=== PATIENT | female | born 1940 | race Caucasian/White ===

== ENCOUNTER 2018-05-26 14:38 | Emergency (ER) | payer OTHER ==
[2018-05-26 14:52] VITALS: BP 110/45; PULSE 65; TEMP 98.1; BMI 21.3
--- NOTE | 2018-05-26 15:38 | PDOC ---
History of Present Illness - General History Source: Patient Exam Limitations: No Limitations - History of Present Illness Initial Comments: 05/26/18 16:00 The patient is a 77 year old female, from [facility], [place], operated by [facility], with a significant past medical history of osteochondroma, schizoaffective disorder, osteoporosis, spinal stenosis of lumbar spine, depression, anxiety, HLD who presents to the ED s/p unwitnessed fall earlier today. Patient states she was leaning forward to throw something away when she fell backwards around 2pm earlier today. Patient states she lost balance but denies dizziness or lightheadedness. She states it happened so fast that she is unable to recall whether or not she hit her head. Upon arrival to the ED, patient is complaining of chronic pain she has at baseline. Patient has a history of falls and ambulates with walker/wheelchair at baseline. Patient was treated in the ED on 05/15/18 for leg pain and discharged home. Denies loss of consciousness. Denies any other symptoms. Surgical hx: Bilateral hip replacement <Laura Singer - Last Filed: 05/26/18 16:08> <Osei Gibbs - Last Filed: 05/26/18 18:33> - General Chief Complaint: Injury Stated Complaint: FALL, Time Seen by Provider: 05/26/18 15:38 Past History <Laura Singer - Last Filed: 05/26/18 16:08> - Past Medical History Asthma: No Cancer: Yes (bone tumor excision) Cardiac Disorders: No CVA: No COPD: No CHF: Yes Dementia: Yes Diabetes: No GI Disorders: Yes (GI BLEED,COLITIS) Disorders: No HTN: Yes Hypercholesterolemia: Yes Liver Disease: No Psychiatric Problems: Yes (schizoaffective disorder) Seizures: No Thyroid Disease: No - Surgical History Abdominal Surgery: No Appendectomy: No Cardiac Surgery: No Cholecystectomy: No Lung Surgery: No Neurologic Surgery: No Orthopedic Surgery: Yes (laminectomy) - Suicide/Smoking/Psychosocial Hx Smoking Status: No Smoking History: Never smoked Have you smoked in the past 12 months: No Number of Cigarettes Smoked Daily: 0 Information on smoking cessation initiated: No Hx Alcohol Use: No Drug/Substance Use Hx: No Substance Use Type: None Hx Substance Use Treatment: No <Osei Gibbs - Last Filed: 05/26/18 18:33> - Past Medical History Allergies/Adverse Reactions: Allergies Allergy/AdvReac Type Severity Reaction Status Date / Time ION Inhibitors Allergy Verified 05/26/18 14:39 aspirin Allergy Verified 05/26/18 14:39 cephalexin monohydrate Allergy Verified 05/26/18 14:39 [From Keflex] hydrocodone bitartrate Allergy Verified 05/26/18 14:39 [From Vicodin] morphine Allergy Verified 05/26/18 14:39 NSAIDS (Non-Steroidal Allergy Verified 05/26/18 14:39 Anti-Inflamma oxycodone HCl [From Percocet] Allergy Verified 05/26/18 14:39 sertraline [From Zoloft] Allergy Verified 05/26/18 14:39 Home Medications: Ambulatory Orders Atenolol [Tenormin -] 50 mg PO DAILY 05/15/18 Bupropion HCl [Bupropion Xl] 150 mg PO DAILY 05/15/18 Calcium Carbonate/Vitamin D3 [Calcium 600+D Softgel] 1 tab PO BID 05/15/18 Duloxetine HCl [Cymbalta -] 60 mg PO DAILY 05/15/18 Furosemide 40 mg PO DAILY 05/15/18 Multivitamin [One Daily] 1 each PO DAILY 05/15/18 Potassium Chloride [K-Dur -] 25 meq PO DAILY 05/15/18 Risperidone 1 mg PO DAILY 05/15/18 Sulfasalazine [Azulfidine] 500 mg PO DAILY 05/15/18 Bupropion HCl [Wellbutrin Xl -] 150 mg PO DAILY 05/26/18 Review of Systems - Review of Systems Able to Perform ROS?: Yes Comments:: 05/26/18 16:00 CONSTITUTIONAL: + fall secondary to loss of balance Absent: fever, chills, diaphoresis, generalized weakness, malaise, loss of appetite HEENT: Absent: rhinorrhea, nasal congestion, throat pain, throat swelling, difficulty swallowing, mouth swelling, ear pain, eye pain, visual Changes CARDIOVASCULAR: Absent: chest pain, syncope, palpitations, irregular heart rate, lightheadedness , peripheral edema RESPIRATORY: Absent: cough, shortness of breath, dyspnea with exertion, orthopnea, wheezing, stridor, hemoptysis GASTROINTESTINAL: Absent: abdominal pain, abdominal distension, nausea, vomiting, diarrhea, constipation, melena, hematochezia GENITOURINARY: Absent: dysuria, frequency, urgency, hesitancy, hematuria, flank pain, genital pain MUSCULOSKELETAL: Absent: myalgia, arthralgia, joint swelling SKIN: Absent: rash, itching, pallor HEMATOLOGIC/IMMUNOLOGIC: Absent: easy bleeding, easy bruising, lymphadenopathy, frequent infections ENDOCRINE: Absent: unexplained weight gain, unexplained weight loss, heat intolerance, cold intolerance NEUROLOGIC: Absent: headache, focal weakness or paresthesias, dizziness, unsteady gait, seizure, mental status changes, bladder or bowel incontinence PSYCHIATRIC: Absent: anxiety, depression, suicidal or homicidal ideation, hallucinations. All Other Systems: Reviewed and Negative <Laura Singer - Last Filed: 05/26/18 16:08> *Physical Exam - Vital Signs Last Vital Signs Temp Pulse Resp BP Pulse Ox 98.1 F 65 20 110/45 L 100 05/26/18 14:39 05/26/18 14:39 05/26/18 14:39 05/26/18 14:39 05/26/18 14:39 - Physical Exam Comments: 05/26/18 16:09 GENERAL: Well developed, well nourished. Awake and alert. No acute distress. HEENT: Normocephalic, atraumatic. PERRLA, EOMI. No conjunctival pallor. Sclera are non- icteric. Moist mucous membranes. Oropharynx is clear. NECK: Supple. Full ROM. No JVD. Carotid pulses 2+ and symmetric, without bruits. No thyromegaly. No lymphadenopathy. No sign of truama or injury CARDIOVASCULAR: Regular rate and rhythm. No murmurs, rubs, or gallops. Distal pulses are 2+ and symmetric. PULMONARY: No evidence of respiratory distress. Lungs clear to auscultation bilaterally. No wheezing, rales or rhonchi. ABDOMINAL: Soft. Non-tender. Non-distended. No rebound or guarding. No organomegaly. Normoactive bowel sounds. MUSCULOSKELETAL Normal range of motion at all joints. No bony deformities or tenderness. No CVA tenderness. EXTREMITIES: + Severe Osteoarthritis of the bilateral knees. 3-4+ edema to the mid thigh bilaterally. Full ROM of the hips without any sign of injury. There is a superficial abrasion over the radial head of the right elbow without any swelling or deformity. SKIN: Warm and dry. Normal capillary refill. No rashes. No jaundice. NEUROLOGICAL: Alert, awake, appropriate. Cranial nerves 2-12 intact. No deficits to light touch and temperature in face, upper extremities and lower extremities. No motor deficits in the in face, upper extremities and lower extremities. Normoreflexic in the upper and lower extremities. Normal speech. Toes are down- going bilaterally. PSYCHIATRIC: Cooperative. Good eye contact. Appropriate mood and affect. <Laura Singer - Last Filed: 05/26/18 16:08> - Vital Signs Last Vital Signs Temp Pulse Resp BP Pulse Ox 98.1 F 65 20 110/45 L 100 05/26/18 14:39 05/26/18 14:39 05/26/18 14:39 05/26/18 14:39 05/26/18 14:39 <Osei Gibbs - Last Filed: 05/26/18 18:33> Medical Decision Making - Medical Decision Making 05/26/18 18:31 care home patient with frequent falls, fell today, unwitnessed, but to the emergency room for evaluation. No obvious injuries other than superficial abrasion to the right elbow.. No complaints of pain or other symptomatology Physical exam is unremarkable except for a minor elbow abrasion. No evidence of a head or neck injury. No evidence of the chest abdominal or serious extremity injury. Neurologic without any focal deficits. Patient was ambulated at the bedside without difficulty. Patient was in no distress upon discharge back to her facility to follow-up as directed.. <Osei Gibbs - Last Filed: 05/26/18 18:33> *DC/Admit/Observation/Transfer - Attestations Scribe Attestion: 05/26/18 16:01 Documentation prepared by Luara Singer, acting as clinical medical transcriptionist for Osei Johnson MD <Laura Singer - Last Filed: 05/26/18 16:08> <Osei Gibbs - Last Filed: 05/26/18 18:33> Diagnosis at time of Disposition: Abrasion of right elbow Qualifiers: Encounter type: initial encounter Qualified Code(s): S50.311A - Abrasion of right elbow, initial encounter - Discharge Dispostion Disposition: HOME Condition at time of disposition: Stable - Patient Instructions Printed Discharge Instructions: How to Prevent Falls
== END 2018-05-26 16:40 ==
LOC: FER 14:38
DX: S50.311A Abrasion of right elbow, initial encounter (principal); I10 Essential (primary) hypertension; E78.5 Hyperlipidemia, unspecified; M81.0 Age-related osteoporosis without current pathological fracture; F25.9 Schizoaffective disorder, unspecified; M48.061 Spinal stenosis, lumbar region without neurogenic claudication; F32.9 Major depressive disorder, single episode, unspecified; F41.9 Anxiety disorder, unspecified; R29.6 Repeated falls; R29.2 Abnormal reflex; Z99.89 Dependence on other enabling machines and devices; Z88.6 Allergy status to analgesic agent; Z88.1 Allergy status to other antibiotic agents; W18.39XA Other fall on same level, initial encounter; Z91.81 History of falling; Y93.89 Activity, other specified; Y92.009 Unspecified place in unspecified non-institutional (private) residence as the place of occurrence of the external cause
CPT/HCPCS: 99281-25

== ENCOUNTER 2019-04-01 07:25 | Emergency (ER) | payer OTHER ==
[2019-04-01 07:44] VITALS: BP 166/65; PULSE 66; TEMP 97.7; BMI 19.8
--- NOTE | 2019-04-01 08:03 | PDOC ---
History of Present Illness - General Chief Complaint: Injury Stated Complaint: FALL Time Seen by Provider: 04/01/19 07:31 History Source: Patient Exam Limitations: No Limitations - History of Present Illness Initial Comments: 04/01/19 07:59 Lucita Bowie is a 78F with PMH osteochondroma and HTN presenting with mechanical fall from squatting onto her R hand. Patient reports this morning was picking something off the floor, but lost her balance and fell backwards onto her R hand. Denies pro-dromal sx, such as fever/ dizziness/weakness/headache/LOC, denies hitting her head, shoulder, leg, elbow, or any other injuries to her body other than her right hand. Says she is more rattled than anything, has no pain in her R hand at this time but says it would probably hurt if she tried to move it. Has pain "everywhere" at baseline, took a Tylenol last night for this pain, but not this morning. Has history of BLE edema, says she was "born with swollen legs ," no acute worsening or pain at this time, denies cardiac history, liver/renal history, or any medications that could be the cause of this. Past History - Past Medical History Allergies/Adverse Reactions: Allergies Allergy/AdvReac Type Severity Reaction Status Date / Time ION Inhibitors Allergy Verified 04/01/19 07:39 aspirin Allergy Verified 04/01/19 07:39 cephalexin monohydrate Allergy Verified 04/01/19 07:39 [From Keflex] hydrocodone bitartrate Allergy Verified 04/01/19 07:39 [From Vicodin] morphine Allergy Verified 04/01/19 07:39 NSAIDS (Non-Steroidal Allergy Verified 04/01/19 07:39 Anti-Inflamma oxycodone HCl [From Percocet] Allergy Verified 04/01/19 07:39 sertraline [From Zoloft] Allergy Verified 04/01/19 07:39 Home Medications: Ambulatory Orders Acetaminophen 650 mg PO QID PRN 04/01/19 Atenolol [Tenormin -] 50 mg PO DAILY 04/01/19 Bupropion HCl [Bupropion Xl] 150 mg PO DAILY 04/01/19 Calcium Carbonate/Vitamin D3 [Calcium 600 + Vit D Tablet] 1 each PO BID Duloxetine HCl [Cymbalta -] 60 mg PO DAILY 04/01/19 Furosemide [Lasix -] 40 mg PO DAILY 04/01/19 Loperamide HCl [Loperamide] 2 mg PO QID PRN 04/01/19 Multivitamins [Tab-A-Vit -] 1 tab PO DAILY 04/01/19 Potassium Chloride 20 meq PO DAILY 04/01/19 Risperidone 2 mg PO PRN 04/01/19 Risperidone [Risperdal] 2 mg PO DAILY 04/01/19 Sulfasalazine [Azulfidine] 500 mg PO DAILY 04/01/19 Asthma: No Cancer: Yes (bone tumor excision) Cardiac Disorders: No CVA: No COPD: No CHF: Yes Dementia: Yes Diabetes: No GI Disorders: Yes (GI BLEED,ULCERATIVE COLITIS) Disorders: No HTN: Yes Hypercholesterolemia: Yes Liver Disease: No Psychiatric Problems: Yes (schizoaffective disorder, DEPRESSION, ANXIETY) Seizures: No Thyroid Disease: No Other medical history: OSTEOCHONDRAOMA, SPINAL STENOSIS - Surgical History Abdominal Surgery: No Appendectomy: No Cardiac Surgery: No Cholecystectomy: No Lung Surgery: No Neurologic Surgery: No Orthopedic Surgery: Yes (laminectomy) - Immunization History Immunization Up to Date: Yes - Suicide/Smoking/Psychosocial Hx Smoking Status: No Smoking History: Never smoked Have you smoked in the past 12 months: No Number of Cigarettes Smoked Daily: 0 Hx Alcohol Use: No Drug/Substance Use Hx: No Substance Use Type: None Hx Substance Use Treatment: No Review of Systems - Review of Systems Constitutional: No: Chills, Fever, Weakness HEENTM: No: Blurred Vision, Recent change in vision, Hearing Loss Respiratory: No: Cough, Shortness of Breath Cardiac (ROS): No: Chest Pain, Edema, Lightheadedness, Palpitations, Syncope ABD/GI: No: Constipated, Diarrhea, Nausea, Vomiting : No: Burning, Dysuria, Discharge, Frequency, Flank Pain, Hematuria Musculoskeletal: Yes: Muscle Pain (whole body). No: Back Pain, Joint Pain Integumentary: No: Bruising, Lesions Neurological: No: Headache, Numbness, Paresthesia, Tingling, Weakness Endocrine: No: Symptoms Reported Hematologic/Lymphatic: No: Symptoms Reported All Other Systems: Reviewed and Negative *Physical Exam - Vital Signs Last Vital Signs Temp Pulse Resp BP Pulse Ox 97.7 F 66 14 166/65 95 08/25/19 07:34 04/01/19 07:34 04/01/19 07:34 04/01/19 07:34 04/01/19 07:34 - Physical Exam General Appearance: Yes: Nourished, Appropriately Dressed, Thin. No: Apparent Distress HEENT: positive: EOMI, MEGHNA, Normal Voice, Symmetrical, Pharynx Normal, Other ( No deformities, bleeding, or tenderness noted to skull or facial bones. No cervical spine tenderness or step-offs. ). negative: Scleral Icterus (R), Scleral Icterus (L) Neck: positive: Trachea midline, Supple. negative: Tender, Lymphadenopathy (R) , Lymphadenopathy (L) Respiratory/Chest: positive: Lungs Clear, Normal Breath Sounds. negative: Respiratory Distress, Crackles, Rales, Rhonchi Cardiovascular: positive: Regular Rhythm, Regular Rate. negative: Murmur Gastrointestinal/Abdominal: positive: Normal Bowel Sounds, Soft. negative: Tender, Organomegaly Musculoskeletal: positive: Normal Inspection. negative: Vertebral Tenderness ( no TTP along midline spine, no step-offs or deformities) Extremity: positive: Normal Capillary Refill, Pelvis Stable, Other (RUE: Full ROM to shoulder, elbow, wrist, and finger joints. Non-tender to bony palpation, no obvious signs of deformity or bleeding. Motor strength 5/5, as expected for age. Sensation intact to LT. LUE: exam grossly normal. BLE: swelling from foot to thigh, non-pitting, no calor or rubor, full ROM all joints, pulses 1+, non- tender to palpation, no pain on passive movement.). negative: Tender Integumentary: positive: Normal Color, Dry, Warm, Cold. negative: Rash, Ecchymosis, Bruising Neurologic: positive: property worker II-XII NML intact, Fully Oriented, Alert, Normal Mood/ Affect, Normal Response, Motor Strength 5/5 (no weakness more than expected for age). negative: Facial Droop, Numbness ED Treatment Course - RADIOLOGY Radiology Studies Ordered: Category Date Time Status HAND- RIGHT [RAD] Stat Radiology 04/01/19 07:56 Ordered WRIST- RIGHT [RAD] Stat Radiology 04/01/19 07:56 Ordered Medical Decision Making - Medical Decision Making 04/01/19 07:59 Lucita Bowie is a 78F with PMH osteochondroma and HTN presenting with mechanical fall from squatting onto her R hand. Patient is alert/oriented x3 and able to give a reliable medical history, is a reliable historian. Says she did not injure any other part of her body, no LOC or head injury, not on AC. Concern for fracture of R hand, no obvious deformities or dislocations notable. Not in any pain at this time, no pain on passive motion of hand at wrist and finger joints, less concerned about soft tissue/tendon injury, but given mechanical fall on hand could have scaphoid fx vs. radial/ulnar fx. Will evaluate with XR R hand and wrist. 04/01/19 09:58 XR R hand and forearm performed. Radius and ulna appear deformed with shortened metacarpals concerning for old fx vs. congential bone disorder, but no signs of acute fx. Deformity could be related to osteochondroma hx, may need further ortho f/u. However, patient is not having pain at this time and is clinically stable with no other signs of injury, stable to go home. *DC/Admit/Observation/Transfer Diagnosis at time of Disposition: Hand pain, right Fall Qualifiers: Encounter type: initial encounter Qualified Code(s): W19.XXXA - Unspecified fall, initial encounter - Discharge Dispostion Disposition: [facility] Condition at time of disposition: Stable Decision to Admit order: No - Referrals Referrals: Juana Serrato [Primary Care Provider] - Marquis Drew MD [Staff Physician] - - Patient Instructions Printed Discharge Instructions: How to Prevent Falls Additional Instructions: Today you were evaluated for a fall you hand onto your hand this morning. We have evaluated your hand and have not seen any obvious signs of a fracture, but the bones in your hand do not appear normal, possibly due to your prior bone disorder. Please follow-up with an orthopedic surgeon; a referral to Dr. Drew has been included with this paperwork. Please follow-up with your primary physician in the next 3 days. Take care not to fall in the future. Be wary of your balance and try to have a hand against a wall or other object before kneeling or moving to help keep you stable. If you experience worsening pain in your hand or arm, fevers, headache, nausea/vomiting , changes to your vision, or any new or concerning symptoms, please return to the emergency room immediately. - Post Discharge Activity
--- NOTE | 2019-04-01 08:05 | PDOC ---
Attending Attestation - Resident Resident Name: Maik Jerry - ED Attending Attestation I have performed the following: I have examined & evaluated the patient, The case was reviewed & discussed with the resident, I agree w/resident's findings & plan, Exceptions are as noted - HPI HPI: 04/01/19 08:02 78 F with h/o HTN, osteochondroma, multiple falls, presenting to ED after falling this morning. Pt states she was bending over to pick something up when she lost her balance, falling onto her outstretched R hand. Pt denies headstrike. Denies LOC. Denies lightheadedness/dizziness/CP/SOB/palpitations prior to or after falling. Pt now endorses pain in her R wrist. No hip or leg pain. No head/neck/back pain. - Physicial Exam PE: 04/01/19 08:03 "GENERAL: Awake, alert, and fully oriented, in no acute distress. HEAD: No signs of trauma EYES: PERRLA, EOMI, sclera anicteric, conjunctiva clear ENT: Auricles normal inspection, hearing grossly normal, nares patent, oropharynx clear without exudates. Moist mucosa NECK: Nontender, no stepoffs, Normal ROM, supple, no lymphadenopathy, JVD, or masses LUNGS: Breath sounds equal, clear to auscultation bilaterally. No wheezes, and no crackles HEART: Regular rate and rhythm, normal S1 and S2, no murmurs, rubs or gallops ABDOMEN: Soft, nontender, normoactive bowel sounds. No guarding, no rebound. No masses EXTREMITIES: + distal ulnar swelling + tenderness, No clubbing or cyanosis. No cords, erythema, or tenderness NEUROLOGICAL: Cranial nerves II through XII intact. 5/5 strength and sensation in all extremities, Normal speech, normal gait, normal cerebellar function SKIN: Warm, Dry, normal turgor, no rashes or lesions noted. - Medical Decision Making 04/01/19 08:04 78 F with R wrist pain after falling today. No evidence of head trauma. No evidence of any other traumatic injury. - XR R hand/wrist/forearm 04/01/19 10:08 XR negative for acute fx Pt is well appearing, with normal vitals. Clinically stable for DC at this time. I discussed the physical exam findings, ancillary test results and final diagnoses with the patient. I answered all of the patient's questions. The patient was satisfied with the care received and felt comfortable with the discharge plan and treatment plan. The patient agrees to follow up with the primary care physician within 24-72 hours.
== END 2019-04-01 11:04 ==
LOC: JER 07:25
DX: M79.641 Pain in right hand (principal); W18.39XA Other fall on same level, initial encounter; Y93.89 Activity, other specified; Y92.098 Other place in other non-institutional residence as the place of occurrence of the external cause; Y99.8 Other external cause status; I11.0 Hypertensive heart disease with heart failure; I50.9 Heart failure, unspecified; Z85.830 Personal history of malignant neoplasm of bone; E78.00 Pure hypercholesterolemia, unspecified; F03.90 Unspecified dementia, unspecified severity, without behavioral disturbance, psychotic disturbance, mood disturbance, and anxiety
CPT/HCPCS: 73090-TC-RT-FY; 73110-TC-RT-FY; 73130-TC-RT-FY; 99281-25

== ENCOUNTER 2019-05-28 13:34 | Emergency (ER) | payer OTHER ==
[2019-05-28 14:02] VITALS: BP 106/45; PULSE 62; TEMP 98.1; BMI 24.8
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
--- NOTE | 2019-05-28 14:16 | PDOC ---
Attending Attestation - Resident Resident Name: Ronny Finley - ED Attending Attestation I have performed the following: I have examined & evaluated the patient, The case was reviewed & discussed with the resident, I agree w/resident's findings & plan, Exceptions are as noted - HPI HPI: 05/28/19 16:54 This is the 78 years old presents from [facility] assisted living with past medical history significant for osteochondroma, schizoaffective disorder, osteoporosis spinal stenosis depression anxiety hyperlipidemia presents to the ED with left index finger injury. Another staff resident at the facility pulled her finger twisting it. Patient is able to flex and extend in all directions no obvious deformity noted complaining of mild pain that is worse with movement. - Physicial Exam PE: 05/28/19 16:54 Vitals: Triage Vital signs reviewed General Appearance: No acute distress, well nourished well developed, Head: Atraumatic, Extremities: Full range of motion to all extremities, no cyanosis, clubbing, or edema Skin: Warm and dry, no rashes or lesions, no rash, no petechiae Neuro: AOX3; cranial Nerves 2-12 grossly intact, strength intact to all extremities, sensation intact to all extremities, Psych: Normal mood, normal affect - Medical Decision Making 05/28/19 17:05 History examination consistent with sprain finger No obvious deformity X-ray ordered No acute fracture dislocation noted Patient splinted instructed to rinse point for 1 week and hand follow-up if still pain Findings, need for follow-up and strict return instructions discussed with patient.
== END 2019-05-28 14:33 | disposition home or self-care (01) ==
LOC: FER 13:34
PROC: 2W3KX1Z Immobilization of Left Finger using Splint (ICD-10-PCS; principal; 2019-05-28)
DX: S63.611A Unspecified sprain of left index finger, initial encounter (principal); X58.XXXA Exposure to other specified factors, initial encounter; Y93.89 Activity, other specified; Y92.099 Unspecified place in other non-institutional residence as the place of occurrence of the external cause; D16.9 Benign neoplasm of bone and articular cartilage, unspecified; F20.89 Other schizophrenia; M81.0 Age-related osteoporosis without current pathological fracture; M48.00 Spinal stenosis, site unspecified; F41.8 Other specified anxiety disorders; E78.5 Hyperlipidemia, unspecified; Z85.89 Personal history of malignant neoplasm of other organs and systems; I50.9 Heart failure, unspecified; F03.90 Unspecified dementia, unspecified severity, without behavioral disturbance, psychotic disturbance, mood disturbance, and anxiety; E78.00 Pure hypercholesterolemia, unspecified; I10 Essential (primary) hypertension
CPT/HCPCS: 73140-TC-LT-FY; 99281-25